=== PATIENT | male | born 2000 | race Caucasian/White ===

== ENCOUNTER 2022-09-08 08:00 | Outpatient (RCR) | payer BC, SELFPAY ==
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
[2022-08-30 11:42] VITALS: BMI 18.3
--- NOTE | 2022-08-30 12:55 | PC.ADMIT ---
Patient is a 22 year old male who was referred to [facility] by [facility] behavioral health unit where he was admitted for the first time d/t increased depression and anxiety. Reports relationship issues with his parents. One of his goals is to live independent of his parents. Patient also, Per integrative assessment was hearing voices of his neighbor saying threatening things and thus he called the police x2. Unsure if he was hallucinating. See integrative assessment for more information. Patient denied AH or VH at present. Patient stated prior to hospitalization he was vaping marijuana heavily and was using it to cope with how he was feeling however has since cut use down to improve his mental health. Denied any other substance use. César is alert and oriented x4. Calm and cooperative. Presents with depressed mood and anxious affect. Denied SI currently. He was given a copy of his safety plan if needed and I reviewed his safety plan with him. Patient given verbal and written education on marijuana use and addiction and the effects of vaping nicotine.
[2022-08-30 12:59] VITALS: BP 110/62; PULSE 76; TEMP 37.2
--- NOTE | 2022-08-31 10:01 | PC.NURSE ---
Patient did not show up to the program this morning. I called and spoke to César who stated he overslept this morning. He stated he will be in tomorrow. [facility] staff is aware.
--- NOTE | 2022-09-02 09:35 | PC.NURSE ---
Patient did not show up to the program this morning. I called César and left him a message to call me back. Awaiting call back.
--- NOTE | 2022-09-02 10:01 | PC.NURSE ---
Called César a second time as he did not show up to the program today. Unable to leave a voice mail this time as his mailbox in currently full.
--- NOTE | 2022-09-02 11:43 | PC.NURSE ---
Called César a third time, he did not answer his phone and I was not able to leave him a message. Called his emergency contact Eugenia Kendrick how is patient's sister who stated she lives out of town however will try and get a hold of him. She stated César lives with his parents in [place]. She stated she will call me back.
--- NOTE | 2022-09-02 12:26 | PC.NURSE ---
César called me back. He overslept this morning. Stated his sleeping patterns are off as he is staying up late at night in addition to smoking marijuana. He wants to cut down his use of marijuana. He did state that he would like to attend the program however is ambivalent as he feels it is a long day for him and feels it is too much for him to go to one group to another. He wants to think about whether her wants to continue the program and call me back. He did state he thinks he could benefit from the program however is unsure he can make the commitment. Denied SI or thoughts to harm himself. He has the crisis numbers if needed.
--- NOTE | 2022-09-08 14:17 | PC.NURSE ---
Patient reports feeling overwhelmed with his living situation. Reports issues with his parents whom he doesn't feel supported by. Upset to find out that it may take him longer to be able to move out of his house and get away from what he describes as an unhealthy environment. Patient reports he is working with a piano case maker who is helping him apply for food stamps and housing. He also thinks he may be on the Autism spectrum and his piano case maker is helping him coordinate further workup in this regard. Patient presents with depressed mood and anxious affect. Reports passive SI, denied intent or plans to kill himself. Feeling hopeless regarding his living situation and feeling depressed as a result. 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 He stated he has increased his marijuana use to cope with his parents, gas lighting . He report he is thinking about inpatient hospitalization and feels he left too soon as he felt he was gaining momentum when inpatient. Talked about wanting to go to [place] as he has heard good things about the hospital there. Stated he would drive there and wanted staff to look into it for him. Elsie talked to [facility] about information she learned from admission to [facility]. Patient plans on coming to the program tomorrow. Patient planning on coming to the program tomorrow.
--- NOTE | 2022-09-08 15:43 | HO.PHP ---
I met with the client to talk about a plan to make a referral to [facility]. He signed a release and we discussed getting assessed tomorrow if he continues to experience suicidal ideation. He states that he is safe and has no plan or intent. His face sheet and doctors note was faxed over to [facility].
--- NOTE | 2022-09-09 09:18 | PC.NURSE ---
César did not show up to the program this morning. Called César and left him a message to call me back.
--- NOTE | 2022-09-09 09:44 | PC.NURSE ---
Vipin called and stated he slept through his alarm. He stated he feels he needs to take the day off. He reports he is safe. Denied SI or thoughts to harm himself. He plans on coming to the program tomorrow.
--- NOTE | 2022-09-10 09:47 | PC.NURSE ---
Vipin called me and stated he was not coming to the program today as he wanted to, take a self care day . He also stated he is working this evening. I told him Elsie would reach out to him regarding his attendance and discharge information. He stated he would be here on Tuesday. He denied SI or thoughts to harm himself and stated he was safe. PHP team is aware.
--- NOTE | 2022-09-10 14:02 | HO.PHP ---
The client overslept for the second day. I called and left a message that we look forward to seeing him on Tuesday. He was reminded that if he does not come in he will be discharged from the program.
--- NOTE | 2022-09-13 09:23 | HO.PHP ---
I called and left a message for the client to call re inquire about absence and discuss dc plans
== END 2022-09-08 23:59 | disposition home or self-care (01) ==
LOC: HO.PHPA 08:00
PROVIDERS: Visit Provider Psychiatry & Neurology Psychiatry
DX: F31.4 Bipolar disorder, current episode depressed, severe, without psychotic features (principal); F41.1 Generalized anxiety disorder; F12.20 Cannabis dependence, uncomplicated
CPT/HCPCS: 90791; 90853